=== PATIENT | female | born 1960 | race African-American/Black ===

== ENCOUNTER 2016-12-25 12:22 | Emergency (ER) | payer OTHER ==
[2016-12-25] MEDS ORDERED: ASPIRIN 81 MG TABLET, CHEWABLE PO ONE (13:49)
[2016-12-25 14:25] LABS: ABSOLUTE BASOPHILS # (AUTO) 0.1 10^3/uL (0.0-0.2); ABSOLUTE EOSINOPHILS # (AUTO) 0.2 10^3/uL (0.0-0.6); ABSOLUTE LYMPHOCYTES (AUTO) 2.6 10^3/uL (0.5-4.7); ABSOLUTE MONOCYTES (AUTO) 0.4 10^3/uL (0.1-1.4); ABSOLUTE NEUT (AUTO) 1.7 10^3/uL (1.7-8.2); BASOPHILS % (AUTO) 2.1 % (0-2); EOSINOPHILS % (AUTO) 3.5 % (0-6); HEMATOCRIT 40.3 % (36.0-47.0); HEMOGLOBIN 14.2 g/dL (12.0-15.5); HGB HCT DIFFERENCE 2.3; LYMPHOCYTES % (AUTO) 51.6 % (13-45); MEAN CORPUSCULAR HEMOGLOBIN 31.1 pg (27.0-33.4); MEAN CORPUSCULAR HGB CONC 35.1 g/dL (32.0-36.0); MEAN CORPUSCULAR VOLUME 89 fl (80-97); MONOCYTES % (AUTO) 8.7 % (3-13); RED BLOOD COUNT 4.55 10^6/uL (3.72-5.28); RED CELL DISTRIBUTION WIDTH 13.9 % (11.5-14.0); SEGMENTED NEUTROPHILS % (AUTO) 34.1 % (42-78); WHITE BLOOD COUNT 5.1 10^3/uL (4.0-10.5)
--- NOTE | 2016-12-25 14:37 | RADIOLOGY REPORT (SQ) ---
EXAM DESCRIPTION: CHEST SINGLE VIEW COMPLETED DATE/TIME: 12/25/2016 2:18 pm REASON FOR STUDY: chest pain, shoulder/neck pain COMPARISON: 09/04/2013 EXAM PARAMETERS: NUMBER OF VIEWS: One view. TECHNIQUE: Single frontal radiographic view of the chest acquired. RADIATION DOSE: NA LIMITATIONS: None. FINDINGS: LUNGS AND PLEURA: No opacities, masses or pneumothorax. No pleural effusion. MEDIASTINUM AND HILAR STRUCTURES: No masses. Contour normal. HEART AND VASCULAR STRUCTURES: Heart normal in size. Normal vasculature. BONES: No acute findings. HARDWARE: None in the chest. OTHER: No other significant finding. IMPRESSION: NO ACUTE RADIOGRAPHIC FINDING IN THE CHEST. TECHNICAL DOCUMENTATION: JOB ID: [id number]
[2016-12-25 15:00] LABS: CREATINE KINASE MB 4.09 ng/mL (<4.55)
[2016-12-25 15:02] LABS: TROPONIN I < 0.012 ng/mL
[2016-12-25 15:12] LABS: BLOOD UREA NITROGEN 17 mg/dL (7-20); CALCIUM 9.9 mg/dL (8.4-10.2); GLUCOSE 83 mg/dL (75-110)
[2016-12-25 15:13] LABS: ALANINE AMINOTRANSFERASE 55 U/L (9-52); ALBUMIN 4.5 g/dL (3.5-5.0); ALKALINE PHOSPHATASE 76 U/L (38-126); ANION GAP 11 (5-19); ASPARTATE AMINO TRANSFERASE 60 U/L (14-36); BILIRUBIN,TOTAL 0.5 mg/dL (0.2-1.3); CARBON DIOXIDE 29 mmol/L (22-30); CHLORIDE 100 mmol/L (98-107); CREATININE RESULT 0.84 mg/dL (0.52-1.25); POTASSIUM 3.4 mmol/L (3.6-5.0); SODIUM 139.6 mmol/L (137-145)
[2016-12-25 15:14] LABS: BILIRUBIN,DIRECT 0.4 mg/dL (0.0-0.4); CREATINE KINASE 436 U/L (30-135); LIPASE 105.8 U/L (23-300); TOTAL PROTEIN 8.4 g/dL (6.3-8.2)
--- NOTE | 2016-12-25 15:15 | EKG REPORT ---
SEVERITY:- BORDERLINE ECG - SINUS RHYTHM PROBABLE LEFT ATRIAL ABNORMALITY BORDERLINE R WAVE PROGRESSION, ANTERIOR LEADS : Confirmed by: Lexie Rubio 25-Dec-2016 15:15:14
--- NOTE | 2016-12-25 16:38 | ER Document Report ---
ED General - General Chief Complaint: Chest Pain Stated Complaint: CHEST PAIN Time Seen by Provider: 12/25/16 13:38 Notes: 56-year-old female presents emergency department complaining of 2 weeks of constant right ear, neck and shoulder pain as well as one half weeks of constant chest pain that she describes as a cramping pressure that has slowly been improving over the past week and a half. It does not change with exertion and it does not change with breathing. Patient notes that she had one episode of diarrhea yesterday but improved today. No nausea and no shortness of breath. Patient went to urgent care for the neck pain and was told to come to the emergency department because she had chest pain. TRAVEL OUTSIDE OF THE [place] IN LAST 30 DAYS: No - Related Data Allergies/Adverse Reactions: No Known Allergies Allergy (Verified 12/25/16 12:35) Past Medical History - General Information source: Patient - Social History Smoking Status: Never Smoker Chew tobacco use (# tins/day): No Frequency of alcohol use: Occasional Drug Abuse: None Family History: CAD, CVA, Malignancy - dad with colon cancer Patient has suicidal ideation: No Patient has homicidal ideation: No - Past Medical History Cardiac Medical History: Reports: Hx Hypercholesterolemia - No medications., Hx Hypertension Endocrine Medical History: Reports: Hx Diabetes Mellitus Type 2 - No medications , Hx Hypothyroidism - No medications Renal/ Medical History: Denies: Hx Peritoneal Dialysis Past Surgical History: Reports: Hx Breast Surgery - Right lumpectomy, Hx Section, Hx Hysterectomy - Immunizations Hx Diphtheria, Pertussis, Tetanus Vaccination: Yes Review of Systems - Review of Systems Constitutional: No symptoms reported EENT: See HPI Cardiovascular: See HPI Respiratory: No symptoms reported Gastrointestinal: See HPI, Diarrhea Musculoskeletal: See HPI -: Yes All other systems reviewed and negative Physical Exam - Vital signs Vitals: Temp Pulse Resp BP Pulse Ox 97.5 F 63 18 124/79 97 12/25/16 12:35 12/25/16 12:35 12/25/16 12:35 12/25/16 12:35 12/25/16 12:35 Interpretation: Normal - Notes Notes: GENERAL: Alert, interacts well. No acute distress. HEAD: Normocephalic, atraumatic EYES: Pupils equal, round and reactive to light, extraocular movements intact. ENT: Oral mucosa moist, tongue midline. NECK: Full range of motion, supple, trachea midline. LUNGS: Clear to auscultation bilaterally, no wheezes, rales or rhonchi, no respiratory distress. HEART: Regular rate and rhythm, no murmurs, gallops, rubs. ABDOMEN: Soft, nontender, nondistended, bowel sounds present in all 4 quadrants. EXTREMITIES: Moves all 4 extremities spontaneously, no edema, radial and dorsalis pedis pulses 2/4 bilaterally. No cyanosis. NEUROLOGICAL: Alert and oriented x3, normal speech, biceps and patellar DTRs 2+ bilaterally. PSYCH: Normal mood, normal affect. SKIN: Warm, Dry, normal turgor, no rashes or lesions noted. Course - Re-evaluation Re-evalutation: 12/25/16 16:36 CBC unremarkable, coags normal, CMP grossly unremarkable, there is slightly elevated AST and ALT but no evidence of acute obstruction or biliary pathology, lipase is normal, cardiac enzymes negative after 1-1/2 weeks of constant pain. This is very unlikely to be ischemic cardiac in nature. EKG is also nonischemic. Patient will be discharged to home, asked to follow-up as an outpatient. Offered muscle relaxer for the neck and shoulder pain. - Vital Signs Vital signs: Temp Pulse Resp BP Pulse Ox 97.5 F 63 18 124/79 97 12/25/16 12:35 12/25/16 12:35 12/25/16 12:35 12/25/16 12:35 12/25/16 12:35 - Laboratory Result Diagrams: 12/25/16 14:00 12/25/16 14:00 Laboratory results interpreted by me: 12/25/16 12/25/16 14:00 14:00 Seg Neutrophils % 34.1 L Lymphocytes % 51.6 H Basophils % 2.1 H Potassium 3.4 L AST 60 H ALT 55 H Creatine Kinase 436 H Total Protein 8.4 H - EKG Interpretation by Me Additional EKG results interpreted by me: 12/25/16 16:37 EKG shows sinus bradycardia at a rate of 57, first-degree AV block, borderline normal wave progression, no ST segment elevations or depressions, no T-wave inversions per my interpretation. Discharge - Discharge Clinical Impression: Chest pain with low risk for cardiac etiology Shoulder pain, bilateral Qualifiers: Chronicity: acute Qualified Code(s): M25.511 - Pain in right shoulder; M25.512 - Pain in left shoulder Condition: Stable Disposition: HOME, SELF-CARE Additional Instructions: Today we did not find any signs of a heart attack, pneumonia, or problem with your pancreas. You should follow-up with your primary care physician as an outpatient. For your pain you may try ibuprofen and acetaminophen. I have also prescribed a muscle relaxer to help with some of your pain. Please return to the emergency department for any new or concerning symptoms. Prescriptions: Methocarbamol [Robaxin 750 mg Tablet] 750 mg PO ASDIR PRN #40 tablet PRN Reason:
[2016-12-25 16:45] VITALS: BP 121/86
== END 2016-12-25 16:59 | disposition home or self-care (01) ==
LOC: ER 12:22
DX: R07.89 Other chest pain (principal); M25.511 Pain in right shoulder; M25.512 Pain in left shoulder; H92.01 Otalgia, right ear; M54.2 Cervicalgia; R00.1 Bradycardia, unspecified; I10 Essential (primary) hypertension; E11.9 Type 2 diabetes mellitus without complications; R19.7 Diarrhea, unspecified; Z82.49 Family history of ischemic heart disease and other diseases of the circulatory system; R74.0 Nonspecific elevation of levels of transaminase and lactic acid dehydrogenase [LDH]
CPT/HCPCS: 36415; 71010; 80053; 82550; 82553; 83690; 84484; 85025; 85610; 93005; 93010; 99285

== ENCOUNTER 2017-10-13 06:56 | Emergency (ER) | payer OTHER ==
[2017-10-13 07:03] VITALS: BP 120/74
[2017-10-13] MEDS ORDERED: LIDOCAINE 5% (700 MG) TRANSDERMAL ADH..PATCH TP ONE (07:53)
--- NOTE | 2017-10-13 07:55 | ER Document Report ---
HPI - HPI Patient complains to provider of: Low back pain Onset: Other - 2 months Onset/Duration: Waxing and waning Quality of pain: Achy Pain Level: 4 Context: Patient presents complaining of low back pain off and on for the past 2 months. Patient denies any fever or urinary retention or incontinence. Patient states that she has an appointment with physical therapy on October 19. Patient states that she has a prescription for gabapentin but does not take it as it does not help her pain symptoms. Associated Symptoms: Other - Low back pain. denies: Fever Exacerbated by: Movement Relieved by: Denies Similar symptoms previously: Yes Recently seen / treated by doctor: No - ROS ROS below otherwise negative: Yes Systems Reviewed and Negative: Yes All other systems reviewed and negative - CONSTITUTIONAL Constitutional: DENIES: Fever, Chills - NEURO Neurology: DENIES: Weakness - RESPIRATORY Respiratory: DENIES: Coughing - GASTROINTESTINAL Gastrointestinal: DENIES: Nausea - URINARY Urinary: DENIES: Dysuria, Urgency, Frequency - REPRODUCTIVE Reproductive: DENIES: : - MUSCULOSKELETAL Musculoskeletal: REPORTS: Extremity pain, Back Pain - DERM Skin Color: Normal Skin Problems: None Past Medical History - General Information source: Patient - Social History Smoking Status: Never Smoker Frequency of alcohol use: None Drug Abuse: None Occupation: Daycare provider Family History: CAD, CVA, Malignancy - dad with colon cancer Patient has suicidal ideation: No Patient has homicidal ideation: No - Past Medical History Cardiac Medical History: Reports: Hx Hypercholesterolemia - No medications., Hx Hypertension Endocrine Medical History: Reports: Hx Diabetes Mellitus Type 2 - No medications , Hx Hypothyroidism - No medications Renal/ Medical History: Denies: Hx Peritoneal Dialysis Musculoskeletal Medical History: Reports Other - Sciatica Past Surgical History: Reports: Hx Breast Surgery - Right lumpectomy, Hx Section, Hx Hysterectomy - Immunizations Hx Diphtheria, Pertussis, Tetanus Vaccination: Yes Vertical Provider Document - CONSTITUTIONAL Agree With Documented VS: Yes Exam Limitations: No Limitations General Appearance: WD/WN, No Apparent Distress Notes: PHYSICAL EXAMINATION: GENERAL: Well-appearing, well-nourished and in no acute distress. HEAD: Atraumatic, normocephalic. EYES: sclera clear, anicteric, conjunctiva are normal. ENT: nares patent, Moist mucous membranes. NECK: Normal range of motion, supple no lymphadenopathy LUNGS: respirations unlabored HEART: Regular rate and rhythm without murmurs EXTREMITIES: Normal range of motion, no pitting or edema. No cyanosis. Gait normal, pt ambulates without difficulty BACK: Left SI joint tenderness, left lumbar paraspinal tenderness, no midline tenderness, no deformities or step-offs. No CVA tenderness. NEUROLOGICAL: Cranial nerves grossly intact. Normal speech, normal gait. No saddle anesthesia. No footdrop PSYCH: Normal mood, normal affect. SKIN: Warm, Dry, normal turgor, no rashes or lesions noted. - INFECTION CONTROL TRAVEL OUTSIDE OF THE [place] IN LAST 30 DAYS: No Course - Re-evaluation Re-evalutation: 10/13/17 07:53 The patient presents with low back pain without signs of spinal cord compression , cauda equina syndrome, infection, aneurysm, or other serious etiology. The patient is neurologically intact. Given the extremely risk of these diagnoses further testing and evaluation for these possibilities does not appear to be indicated at this time. Patient has been instructed to return if the symptoms worsen or change in any way. Controlled substance database reviewed - Vital Signs Vital signs: Temp Pulse Resp BP Pulse Ox 98 F 79 18 120/74 96 10/13/17 06:59 10/13/17 06:59 10/13/17 06:59 10/13/17 06:59 10/13/17 06:59 Discharge - Discharge Clinical Impression: Sciatica Qualifiers: Laterality: left Qualified Code(s): M54.32 - Sciatica, left side Condition: Stable Disposition: HOME, SELF-CARE Instructions: Ice Packs ([facility]), Low Back Pain ([facility]), Oral Narcotic Medication ( [facility]), Sciatica ([facility]) Additional Instructions: Return immediately for any new or worsening symptoms Followup with your primary care provider, call tomorrow to make a followup appointment No heavy lifting Prescriptions: Cyclobenzaprine HCl [Flexeril 10 Mg Tablet] 10 mg PO TID #15 tablet Oxycodone HCl/Acetaminophen [Percocet 5-325 mg Tablet] 1 tab PO ASDIR PRN #15 tablet PRN Reason: Forms: Return to Work Referrals: RAJWINDER FRIEND MD [Primary Care Provider] - Follow up tomorrow
== END 2017-10-13 08:17 | disposition home or self-care (01) ==
LOC: ER 06:56
DX: M54.32 Sciatica, left side (principal); E78.00 Pure hypercholesterolemia, unspecified; I10 Essential (primary) hypertension; E11.9 Type 2 diabetes mellitus without complications; Z90.710 Acquired absence of both cervix and uterus
CPT/HCPCS: 99283

== ENCOUNTER → 2018-01-11 | Outpatient (CLI) | payer OTHER ==
--- NOTE | 2018-01-11 14:36 | WOMENS IMAGING REPORT ---
EXAM DESCRIPTION: BILAT SCREENING MAMMO W/CAD COMPLETED DATE/TIME: 01/11/2018 1:17 pm REASON FOR STUDY: BILATERAL SCREENING MAMMO/Z12.31 Z12.31 ENCNTR SCREEN MAMMOGRAM FOR MALIGNANT JEREMÍAS PLASM OF YAIR COMPARISON: Multiple since 2009 TECHNIQUE: Standard craniocaudal and mediolateral oblique views of each breast recorded using [employer] acquisition. LIMITATIONS: None. FINDINGS: No masses, calcifications or architectural distortion. No areas of suspicion. Read with the assistance of CAD. [facility] - R2 Cenova Version 1.3 .[facility] - R2 Cenova Version 1.3 .[facility] - R2 Cenova Version 2.4 .[facility] [place] Cenova Version 2.4 .[facility] - R2 [employer] Version 9.2 IMPRESSION: NORMAL MAMMOGRAM. BIRADS 1. BREAST DENSITY: b. There are scattered areas of fibroglandular density. BIRAD: 1 NEGATIVE RECOMMENDATION: ROUTINE SCREENING Please continue yearly bilateral screening mammography/tomosynthesis in December 2018 COMMENT: The patient has been notified of the results by letter per [place] requirements. Additional no tification policies are in place for contacting patient with suspicious or incomplete findings. Quality ID #[id number]: The [employer] recommends an annual screening mammogram for women aged 40 years or over. This facility utilizes a reminder system to ensure that all patients receive reminder letters, and/or direct phone calls for appointments. This includes reminders for routine scr eening mammograms, diagnostic mammograms, or other Breast Imaging Interventions when appropriate. Th is patient will be placed in the appropriate reminder system. The [employer] (ACR) has developed recommendations for screening MRI of the breast s in certain patient populations, to be used in conjunction with mammography. Breast MRI surveillanc e may be appropriate for women with more than 20% lifetime risk of developing breast cancer as deter mined by genetic testing, significant family history of the disease, or history of mantle radiation f or Hodgkins Disease. ACR Practice Guidelines 2008. TECHNICAL DOCUMENTATION: FINDING NUMBER: (1) ASSESSMENT: (1) JOB ID: [id number] [employer]- All Rights Reserved Reading location - IP/workstation name: [email or web address]
== END ==
LOC: WI 12:45
PROVIDERS: ATTEND Physician Assistant Medical
DX: Z12.31 Encounter for screening mammogram for malignant neoplasm of breast (principal)
CPT/HCPCS: 77067

== ENCOUNTER → 2018-07-27 | Outpatient (CLI) | payer OTHER | LOC: OD 07:38 | PROVIDERS: ATTEND Otolaryngology | DX: J30.9 Allergic rhinitis, unspecified (principal) | CPT/HCPCS: 36415; 82785; 86003 ==

== ENCOUNTER 2018-08-12 08:35 | Emergency (ER) | payer OTHER ==
[2018-08-12] MEDS ORDERED: ASPIRIN 81 MG TABLET, CHEWABLE PO ONE (09:13)
--- NOTE | 2018-08-12 09:15 | ER Document Report ---
ED Medical Screen (RME) - General Chief Complaint: Chest Pain Stated Complaint: LEFT LEG PAIN Time Seen by Provider: 08/12/18 09:12 Primary Care Provider: RIZWAN MADSEN MD [Primary Care Provider] - Follow up as needed Mode of Arrival: Ambulatory Information source: Patient Notes: 58-year-old female presented to ED for complaint of left chest pain that goes across both shoulders and down the left arm. She states it makes her left arm numb at times. She also has low back pain that radiates to both legs but worse on the left side. She denies any signs or symptoms of cauda equina, saddle anesthesia, loss of control of bowel bladder, loss of sensation or control of lower extremities. Patient is able to walk with a even steady gait. She states she does have a history of sciatica and high blood pressure. Patient is alert oriented respirations regular and unlabored speaking in full sentences. I have greeted and performed a rapid initial assessment of this patient. A comprehensive ED assessment and evaluation of the patient, analysis of test results and completion of medical decision making process will be conducted by an additional ED providers. Dictation of this chart was performed using voice recognition software; therefore, there may be some unintended grammatical errors. TRAVEL OUTSIDE OF THE [place] IN LAST 30 DAYS: No - Related Data Allergies/Adverse Reactions: No Known Allergies Allergy (Verified 08/12/18 08:36) Past Medical History - Past Medical History Cardiac Medical History: Reports: Hx Hypercholesterolemia - No medications., Hx Hypertension Endocrine Medical History: Reports: Hx Diabetes Mellitus Type 2 - No medications, Hx Hypothyroidism - No medications Renal/ Medical History: Denies: Hx Peritoneal Dialysis Past Surgical History: Reports: Hx Breast Surgery - Right lumpectomy, Hx Section, Hx Hysterectomy - Immunizations Hx Diphtheria, Pertussis, Tetanus Vaccination: Yes Physical Exam - Vital signs Vitals: Temp Pulse Resp BP Pulse Ox 98.1 F 71 16 144/78 H 96 08/12/18 08:48 08/12/18 08:48 08/12/18 08:48 08/12/18 08:48 08/12/18 08:48 Course - Vital Signs Vital signs: Temp Pulse Resp BP Pulse Ox 98.1 F 71 16 144/78 H 96 08/12/18 08:48 08/12/18 08:48 08/12/18 08:48 08/12/18 08:48 08/12/18 08:48 Doctor's Discharge - Discharge Referrals: RIZWAN MADSEN MD [Primary Care Provider] - Follow up as needed
--- NOTE | 2018-08-12 09:56 | RADIOLOGY REPORT (SQ) ---
EXAM DESCRIPTION: CHEST 2 VIEWS COMPLETED DATE/TIME: 08/12/2018 9:42 am REASON FOR STUDY: chest and upper back pain COMPARISON: AP chest 12/25/2016 EXAM PARAMETERS: NUMBER OF VIEWS: two views TECHNIQUE: Digital Frontal and Lateral radiographic views of the chest acquired. RADIATION DOSE: NA LIMITATIONS: none FINDINGS: LUNGS AND PLEURA: No opacities, masses or pneumothorax. No pleural effusion. MEDIASTINUM AND HILAR STRUCTURES: No masses or contour abnormalities. HEART AND VASCULAR STRUCTURES: Heart normal size. No evidence for failure. BONES: No acute findings. HARDWARE: None in the chest. OTHER: No other significant finding. IMPRESSION: NO ACUTE RADIOGRAPHIC FINDING IN THE CHEST. TECHNICAL DOCUMENTATION: JOB ID: [id number] [employer]- All Rights Reserved Reading location - IP/workstation name: [email or web address]
[2018-08-12 10:00] LABS: ABSOLUTE EOSINOPHILS # (AUTO) 0.2 10^3/uL (0.0-0.6); ABSOLUTE LYMPHOCYTES (AUTO) 2.5 10^3/uL (0.5-4.7); ABSOLUTE MONOCYTES (AUTO) 0.5 10^3/uL (0.1-1.4); ABSOLUTE NEUT (AUTO) 1.8 10^3/uL (1.7-8.2); BASOPHILS % (AUTO) 0.9 % (0-2); EOSINOPHILS % (AUTO) 3.5 % (0-6); HEMATOCRIT 39.7 % (36.0-47.0); HEMOGLOBIN 13.4 g/dL (12.0-15.5); LYMPHOCYTES % (AUTO) 50.3 % (13-45); MEAN CORPUSCULAR HEMOGLOBIN 30.1 pg (27.0-33.4); MEAN CORPUSCULAR HGB CONC 33.7 g/dL (32.0-36.0); MEAN CORPUSCULAR VOLUME 89 fl (80-97); PLATELET COUNT 268 10^3/uL (150-450); RED BLOOD COUNT 4.45 10^6/uL (3.72-5.28); RED CELL DISTRIBUTION WIDTH 13.8 % (11.5-14.0); SEGMENTED NEUTROPHILS % (AUTO) 36.3 % (42-78); TOTAL CELLS COUNTED % (AUTO) 100 %
[2018-08-12 10:11] LABS: APPEARANCE,URINE CLOUDY; BILIRUBIN,URINE NEGATIVE (NEGATIVE); COLOR,URINE YELLOW; GLUCOSE, URINE NEGATIVE (NEGATIVE); KETONES,URINE NEGATIVE (NEGATIVE); LEUKOCYTE ESTERASE,URINE MODERATE (NEGATIVE); NITRITE,URINE NEGATIVE (NEGATIVE); PROTEIN,URINE NEGATIVE (NEGATIVE); URINE SPECIFIC GRAVITY 1.015; UROBILINOGEN,URINE NEGATIVE mg/dL (<2.0)
[2018-08-12 10:19] LABS: ALANINE AMINOTRANSFERASE 50 U/L (9-52); ALKALINE PHOSPHATASE 76 U/L (38-126); ANION GAP 9 (5-19); ASPARTATE AMINO TRANSFERASE 51 U/L (14-36); BILIRUBIN,DIRECT 0.2 mg/dL (0.0-0.4); BILIRUBIN,TOTAL 0.4 mg/dL (0.2-1.3); BLOOD UREA NITROGEN 14 mg/dL (7-20); CALCIUM 9.5 mg/dL (8.4-10.2); CARBON DIOXIDE 29 mmol/L (22-30); CHLORIDE 103 mmol/L (98-107); GLUCOSE 91 mg/dL (75-110); POTASSIUM 4.2 mmol/L (3.6-5.0); SODIUM 141.2 mmol/L (137-145); TOTAL PROTEIN 7.7 g/dL (6.3-8.2)
[2018-08-12 10:37] LABS: CREATINE KINASE MB 2.01 ng/mL (<4.55)
[2018-08-12 10:40] LABS: TROPONIN I < 0.012 ng/mL
--- NOTE | 2018-08-12 10:45 | RADIOLOGY REPORT (SQ) ---
EXAM DESCRIPTION: L SPINE WHOLE COMPLETED DATE/TIME: 08/12/2018 9:42 am REASON FOR STUDY: low back pain radiates to left leg COMPARISON: None. NUMBER OF VIEWS: Five views including obliques. TECHNIQUE: AP, lateral, oblique, and sacral radiographic images acquired of the lumbar spine. LIMITATIONS: None. FINDINGS: MINERALIZATION: Normal. SEGMENTATION: Normal. No transitional anatomy. ALIGNMENT: Minimal grade 1 anterolisthesis of L4 on L5. VERTEBRAE: Maintained height. No fracture or worrisome bone lesion. DISCS: Mild disc narrowing at L4-5 and L5-S1. POSTERIOR ELEMENTS: Hypertrophic facet changes from L4-S1. HARDWARE: None in the spine. PARASPINAL SOFT TISSUES: Normal. PELVIS: Intact as visualized. No fractures or worrisome bone lesions. SI joints intact. OTHER: No other significant finding. IMPRESSION: Minimal anterolisthesis. Mild degenerative disc changes. Facet arthropathy. TECHNICAL DOCUMENTATION: JOB ID: [id number] [employer]- All Rights Reserved Reading location - IP/workstation name: [email or web address]
[2018-08-12 12:02] VITALS: BP 123/75
--- NOTE | 2018-08-12 14:19 | ER Document Report ---
Entered by EFRA OSLANO SCRIBE 08/12/18 1007 Acting as scribe for:ANTWON BARRAGAN MD ED General - General Chief Complaint: Chest Pain Stated Complaint: LEFT LEG PAIN Time Seen by Provider: 08/12/18 09:12 Primary Care Provider: RIZWAN MADSEN MD [ACTIVE STAFF] - Follow up as needed Mode of Arrival: Ambulatory Information source: Patient Notes: Patient is a 58 year old female presenting to the emergency department complaining of left leg pain with associated chest and lower back pain. Patient states that the pain she is experiencing is "burning down the front of my leg" and she also describes the quality of her chest pain as a pressure. Patient states the pain travels straight down her leg, not in a radicular pattern. Patient states that she has had this pain in the past and it is usually intermittent but is currently constant. Patient states that the onset of this pain was last night. Patient is currently taking medication for her blood pressure, but denies taking any medication for her thyroid, cholesterol, or diabetes. TRAVEL OUTSIDE OF THE [place] IN LAST 30 DAYS: No - Related Data Allergies/Adverse Reactions: No Known Allergies Allergy (Verified 08/12/18 08:36) Past Medical History - General Information source: Patient - Social History Smoking Status: Never Smoker Cigarette use (# per day): No Frequency of alcohol use: Occasional Drug Abuse: None Lives with: Family Family History: CAD, CVA, Malignancy Patient has suicidal ideation: No Patient has homicidal ideation: No - Past Medical History Cardiac Medical History: Reports: Hx Hypercholesterolemia - No medications., Hx Hypertension Endocrine Medical History: Reports: Hx Diabetes Mellitus Type 2 - No medications, Hx Hypothyroidism - No medications Past Surgical History: Reports: Hx Breast Surgery - Right lumpectomy, Hx Section, Hx Hysterectomy - Immunizations Hx Diphtheria, Pertussis, Tetanus Vaccination: Yes Review of Systems - Review of Systems Constitutional: No symptoms reported EENT: No symptoms reported Cardiovascular: See HPI, Chest pain Respiratory: No symptoms reported Gastrointestinal: No symptoms reported Genitourinary: No symptoms reported Female Genitourinary: No symptoms reported Musculoskeletal: Back pain, Other - left leg pain Skin: No symptoms reported Hematologic/Lymphatic: No symptoms reported Neurological/Psychological: No symptoms reported -: Yes All other systems reviewed and negative Physical Exam - Vital signs Vitals: Temp Pulse Resp BP Pulse Ox 98.1 F 71 16 144/78 H 96 08/12/18 08:48 08/12/18 08:48 08/12/18 08:48 08/12/18 08:48 08/12/18 08:48 - Notes Notes: Physical Exam: General: Alert, morbidly obese. HEENT: Normocephalic. Atraumatic. PERRL. Extraocular movements intact. Oropharynx clear. Neck: Supple. Non-tender. Respiratory: No respiratory distress, no anterior chest wall tenderness palpation. Clear and equal breath sounds bilaterally. Cardiovascular: Regular rate and rhythm. Abdominal: Normal Inspection. Non-tender. No distension. Normal Bowel Sounds. Back: Lower lumbar tenderness to palpation. No deformity or step off. Extremities: Moves all four extremities. Upper extremities: Normal inspection. Normal ROM. Lower extremities: Normal inspection. No edema. Normal ROM. Neurological: Normal cognition. AAOx4. Normal speech. Psychological: Normal affect. Normal Mood. Skin: Warm. Dry. Normal color. Course - Re-evaluation Re-evalutation: 08/12/18 11:14 Patient's hemoglobin A1c is 5.5, and the TSH is 1.40 She did receive a prescription for 90 Roberts tablets from her new primary care provider 6 days ago. - Vital Signs Vital signs: Temp Pulse Resp BP Pulse Ox 98.0 F 71 15 123/75 99 08/12/18 12:00 08/12/18 08:48 08/12/18 12:00 08/12/18 12:00 08/12/18 12:00 - Laboratory Result Diagrams: 08/12/18 09:40 08/12/18 09:40 Laboratory results interpreted by me: 08/12/18 08/12/18 08/12/18 09:40 09:40 09:42 Seg Neutrophils % 36.3 L Lymphocytes % 50.3 H AST 51 H Ur Leukocyte Esterase MODERATE H - Diagnostic Test Radiology reviewed: Image reviewed, Reports reviewed - Lumbar spine films show facet arthropathy and some other degenerative changes with nothing acute. Chest x-ray is unremarkable. Discharge - Discharge Clinical Impression: Chest wall pain, Numbness of left anterior thigh Chronic low back pain Qualifiers: Back pain laterality: unspecified Sciatica presence: unspecified whether sciatica present Qualified Code(s): M54.5 - Low back pain; G89.29 - Other chronic pain Condition: Stable Disposition: HOME, SELF-CARE Additional Instructions: Chest Wall Pain: Your chest pain has been diagnosed as coming from the chest wall. This is often caused by straining the muscles or joints in the chest during physical activity, direct trauma, coughing, or vigorous vomiting. Persons with arthritis are especially prone to this type of pain, due to inflammation of the cartilage joints near the breast bone. Occasionally, no cause can be found. Rest from strenuous physical activity. This kind of chest pain is usually made worse by movement of the chest. Depending on the symptoms, we may prescribe medicine for pain, muscle relaxation, and antiinflammatory effects. If the pain is new, and seems to be due to muscle strain, cold packs can help. Otherwise, apply gentle warmth to the painful area for 15 minutes every hour or two. You should contact the doctor immediately if things change. Further evaluation is needed if you develop a fever or cough, if the nature of the pain changes, or if you become short of breath. Chronic Back Pain: Chronic back pain (pain persisting longer than three months) is a common problem. A medical evaluation can look for herniated disc, arthritis, osteoporosis, tumors, and infections. But at least half the time, there's no obvious treatable cause. Anxiety and depression tend to worsen back pain. Ibuprofen or other anti-inflammatory medicine can help. A heating pad, used for 15-20 minutes at a time, can ease pain. For this type of back pain, narcotic medicines should be avoided. Muscle relaxers are rarely helpful unless you're having spasms. Activity is important. Find an aerobic exercise program that your back can tolerate. Too much rest makes back pain worse. Specific back exercises are usually prescribed to strengthen the back and abdominal muscles. Often, a physical therapist can help. Avoid heavy lifting, working while bent over, or standing with both knees straight. Most back pain patients do better with a firm mattress. If new symptoms of a "herniated disc" (radiation of pain, numbness, or tingling down the back of the leg or weakness in the leg) occur, you should be re-examined. Your x-rays did show some arthritic changes in your lumbar spine. Your hemoglobin A1c was normal, and your thyroid-stimulating hormone were normal, meaning you do not show evidence of diabetes or impaired glucose tolerance at this time, and you do not show evidence of hypothyroidism. The numbness and burning sensation in your left anterior thigh is not likely a pinched nerve problem, because it does not follow a lumbar nerve dermatome patterns. Continue your regular medications. Adding ibuprofen or Aleve may help the chest wall discomfort. Follow-up with your primary care provider if not improving. RETURN TO THE EMERGENCY ROOM IF ANY NEW OR WORSENING SYMPTOMS. Referrals: RIZWAN MADSEN MD [ACTIVE STAFF] - Follow up as needed Scribe Attestation: 08/12/18 10:31 I personally performed the services described in the documentation, reviewed and edited the documentation which was dictated to the scribe in my presence, and it accurately records my words and actions. I personally performed the services described in the documentation, reviewed and edited the documentation which was dictated to the scribe in my presence, and it accurately records my words and actions.
--- NOTE | 2018-08-12 16:19 | EKG REPORT ---
SEVERITY:- ABNORMAL ECG - SINUS RHYTHM PROBABLE LEFT ATRIAL ABNORMALITY ABNRM R PROG, CONSIDER ASMI OR LEAD PLACEMENT : Confirmed by: Joel Jimenez MD 12-Aug-2018 16:18:57
== END 2018-08-12 12:08 | disposition home or self-care (01) ==
LOC: ER 08:35
DX: R07.89 Other chest pain (principal); R20.0 Anesthesia of skin; M79.605 Pain in left leg; G89.29 Other chronic pain; M54.5 Low back pain; E78.00 Pure hypercholesterolemia, unspecified; I10 Essential (primary) hypertension; E11.9 Type 2 diabetes mellitus without complications; Z90.710 Acquired absence of both cervix and uterus
CPT/HCPCS: 36415; 71046; 72110; 80053; 81001; 82553; 83036; 84443; 84484; 85025; 93005; 93010; 99284

== ENCOUNTER 2020-03-19 18:03 | Observation (INO) | payer OTHER ==
--- NOTE | 2020-03-19 18:50 | ER Document Report ---
ED Medical Screen (RME) - General Chief Complaint: Blood Pressure Problem Stated Complaint: BLOOD PRESUURE PROBLEM Time Seen by Provider: 03/19/20 18:40 Primary Care Provider: JUNITO WATSON PA-C [Primary Care Provider] - Follow up as needed Mode of Arrival: Wheelchair Information source: Patient Notes: 60-year-old female presented to ED for complaint of severe headache blurred vision chest pain radiating down her right arm. She states she is also having tingling in her left arm and hand. She states she has had high blood pressure since about 1989. Her blood pressure in triage was 244/115. She is already on clonidine patch which she put on Wednesday lisinopril verapamil and hydrochlorothiazide. She is on Metformin for her diabetes type 2 and hydrocodone for her chronic pain. She came in because the increase in headache and blurred vision and pain radiating from the chest down the left arm. I have greeted and performed a rapid initial assessment of this patient. A comprehensive ED assessment and evaluation of the patient, analysis of test results and completion of medical decision making process will be conducted by an additional ED providers. TRAVEL OUTSIDE OF THE [place] IN LAST 30 DAYS: No - Related Data Allergies/Adverse Reactions: No Known Allergies Allergy (Verified 08/12/18 08:36) Past Medical History - Past Medical History Cardiac Medical History: Reports: Hx Hypercholesterolemia - No medications., Hx Hypertension Endocrine Medical History: Reports: Hx Diabetes Mellitus Type 2 - No medications, Hx Hypothyroidism - No medications Renal/ Medical History: Denies: Hx Peritoneal Dialysis Past Surgical History: Reports: Hx Breast Surgery - Right lumpectomy, Hx Section, Hx Hysterectomy - Immunizations Hx Diphtheria, Pertussis, Tetanus Vaccination: Yes Physical Exam - Vital signs Vitals: Temp Pulse Resp BP Pulse Ox 98.1 F 75 20 224/115 H 99 03/18/20 18:10 03/18/20 18:10 03/18/20 18:10 03/18/20 18:10 03/18/20 18:10 Course - Vital Signs Vital signs: Temp Pulse Resp BP Pulse Ox 98.1 F 75 20 224/115 H 99 03/18/20 18:10 03/18/20 18:10 03/18/20 18:10 03/18/20 18:10 03/18/20 18:10 Doctor's Discharge - Discharge Referrals: JUNITO WATSON PAChaddC [Primary Care Provider] - Follow up as needed
[2020-03-19 19:25] LABS: ABSOLUTE EOSINOPHILS # (AUTO) 0.2 10^3/uL (0.0-0.6); ABSOLUTE MONOCYTES (AUTO) 0.4 10^3/uL (0.1-1.4); ABSOLUTE NEUT (AUTO) 2.5 10^3/uL (1.7-8.2); TOTAL CELLS COUNTED % (AUTO) 100 %
[2020-03-19 19:28] LABS: ABSOLUTE BASOPHILS # (AUTO) 0.1 10^3/uL (0.0-0.2); ABSOLUTE LYMPHOCYTES (AUTO) 3.1 10^3/uL (0.5-4.7); BASOPHILS % (AUTO) 0.9 % (0-2); EOSINOPHILS % (AUTO) 2.8 % (0-6); HEMATOCRIT 41.5 % (36.0-47.0); HEMOGLOBIN 13.8 g/dL (12.0-15.5); LYMPHOCYTES % (AUTO) 49.3 % (13-45); MEAN CORPUSCULAR HGB CONC 33.3 g/dL (32.0-36.0); MEAN CORPUSCULAR VOLUME 90 fl (80-97); MONOCYTES % (AUTO) 7.2 % (3-13); PLATELET COUNT 256 10^3/uL (150-450); RED BLOOD COUNT 4.62 10^6/uL (3.72-5.28); RED CELL DISTRIBUTION WIDTH 14.1 % (11.5-14.0); SEGMENTED NEUTROPHILS % (AUTO) 39.8 % (42-78); WHITE BLOOD COUNT 6.2 10^3/uL (4.0-10.5)
[2020-03-19 19:29] LABS: INTERNATIONAL RATION (INR) 0.83; PROTHROMBIN TIME 11.6 SEC (11.4-15.4)
[2020-03-19 19:30] LABS: PARTIAL THROMBOPLASTIN TIME 27.8 SEC (23.5-35.8)
--- NOTE | 2020-03-19 19:37 | RADIOLOGY REPORT (SQ) ---
EXAM DESCRIPTION: CT HEAD WITHOUT IMAGES COMPLETED DATE/TIME: 03/19/2020 7:19 pm REASON FOR STUDY: Headache high blood pressure blurred vision COMPARISON: None. TECHNIQUE: Axial images acquired through the brain without intravenous contrast. Images reviewed wi th bone, brain and subdural windows. Additional sagittal and coronal reconstructions were generated. Images stored on PACS. All CT scanners at this facility use dose modulation, iterative reconstruction, and/or weight based d osing when appropriate to reduce radiation dose to as low as reasonably achievable (ALARA). [facility]: Dose Right [facility]: CareDose [facility]: Dose Right [facility]: Teradose 4D [facility]: Smart Yieldex RADIATION DOSE: CT Rad equipment meets quality standard of care and radiation dose reduction techniq ues were employed. CTDIvol: 53.2 mGy. DLP: 964 mGy-cm. mGy. LIMITATIONS: None. FINDINGS: VENTRICLES: Normal size and contour. CEREBRUM: No masses. No hemorrhage. No midline shift. No evidence for acute infarction. Normal gra y/white matter differentiation. No areas of low density in the white matter. CEREBELLUM: No masses. No hemorrhage. No alteration of density. No evidence for acute infarction. EXTRAAXIAL SPACES: No fluid collections. No masses. ORBITS AND GLOBE: No intra- or extraconal masses. Normal contour of globe without masses. CALVARIUM: No fracture. PARANASAL SINUSES: No fluid or mucosal thickening. SOFT TISSUES: No mass or hematoma. OTHER: No other significant finding. IMPRESSION: NORMAL BRAIN CT WITHOUT CONTRAST. EVIDENCE OF ACUTE STROKE: NO. COMMENT: Quality ID # [id number]: Final reports with documentation of one or more dose reduction techniques (e.g., Automated exposure control, adjustment of the mA and/or kV according to patient size, use of iterative reconstruction technique) TECHNICAL DOCUMENTATION: JOB ID: [id number] 2010 [facility]- All Rights Reserved Reading location - IP/workstation name: [email or web address]
--- NOTE | 2020-03-19 19:38 | RADIOLOGY REPORT (SQ) ---
EXAM DESCRIPTION: CHEST SINGLE VIEW IMAGES COMPLETED DATE/TIME: 03/19/2020 7:18 pm REASON FOR STUDY: Chest pain COMPARISON: 08/12/2018 EXAM PARAMETERS: NUMBER OF VIEWS: One view. TECHNIQUE: Single frontal radiographic view of the chest acquired. RADIATION DOSE: NA LIMITATIONS: None. FINDINGS: LUNGS AND PLEURA: No opacities, masses or pneumothorax. No pleural effusion. MEDIASTINUM AND HILAR STRUCTURES: No masses. Contour normal. HEART AND VASCULAR STRUCTURES: Heart normal in size. Normal vasculature. BONES: No acute findings. HARDWARE: None in the chest. OTHER: No other significant finding. IMPRESSION: NO ACUTE RADIOGRAPHIC FINDING IN THE CHEST. TECHNICAL DOCUMENTATION: JOB ID: [id number] 2010 [employer]- All Rights Reserved Reading location - IP/workstation name: [email or web address]
[2020-03-19 19:44] LABS: ALBUMIN 4.1 g/dL (3.5-5.0); ALKALINE PHOSPHATASE 73 U/L (38-126); ANION GAP 10 (5-19); ASPARTATE AMINO TRANSFERASE 42 U/L (14-36); BILIRUBIN,DIRECT 0.3 mg/dL (0.0-0.4); BILIRUBIN,TOTAL 0.6 mg/dL (0.2-1.3); BLOOD UREA NITROGEN 16 mg/dL (7-20); CALCIUM 9.5 mg/dL (8.4-10.2); CARBON DIOXIDE 31 mmol/L (22-30); CHLORIDE 99 mmol/L (98-107); GLUCOSE 92 mg/dL (75-110); POTASSIUM 4.2 mmol/L (3.6-5.0); TOTAL PROTEIN 7.8 g/dL (6.3-8.2)
[2020-03-19 19:55] LABS: APPEARANCE,URINE CLEAR; BILIRUBIN,URINE NEGATIVE (NEGATIVE); COLOR,URINE STRAW; GLUCOSE, URINE NEGATIVE (NEGATIVE); KETONES,URINE NEGATIVE (NEGATIVE); LEUKOCYTE ESTERASE,URINE NEGATIVE (NEGATIVE); NITRITE,URINE NEGATIVE (NEGATIVE); PROTEIN,URINE NEGATIVE (NEGATIVE); URINE SPECIFIC GRAVITY 1.004; UROBILINOGEN,URINE NEGATIVE mg/dL (<2.0)
--- NOTE | 2020-03-19 21:02 | EKG REPORT ---
SEVERITY:- ABNORMAL ECG - SINUS RHYTHM PROBABLE LEFT ATRIAL ABNORMALITY POOR R WAVE PROGRESSION , CONSIDER OLD ANTERIOR KS : Confirmed by: Joel Jimenez MD 19-Mar-2020 21:01:48
[2020-03-19] MEDS ORDERED: NITROGLYCERIN 2% OINTMENT 1 GM PACKET TP ONE (21:30)
[2020-03-19] MEDS ORDERED: ASPIRIN 81 MG TABLET, CHEWABLE PO ONE (21:30)
--- NOTE | 2020-03-19 21:49 | ER Document Report ---
Entered by GUILLERMO LIM SCRIBE 03/19/[id number] Acting as scribe for:GARRICK SHAW, DO ED General - General Chief Complaint: High Blood Pressure Stated Complaint: BLOOD PRESUURE PROBLEM Time Seen by Provider: 03/19/20 18:40 Primary Care Provider: JUNITO WATSON PA-C [Primary Care Provider] - Follow up as needed Mode of Arrival: Wheelchair Information source: Patient Notes: This 60-year-old female patient presents to the emergency department today with complaints of chest pain for the last few days with an associated headache. Patient reports that the pain radiates across her chest and from her left shoulder down to her left hand. Patient also mentions that her blood pressure has been elevated the last few days with the highest pressure reading being 175/115. She reports having an echo in 1994 but does not think she has had a ca rdiac cath. TRAVEL OUTSIDE OF THE [place] IN LAST 30 DAYS: No - Related Data Allergies/Adverse Reactions: No Known Allergies Allergy (Verified 03/19/20 19:18) Home Medications: Lisinopril. HCTZ. Verapimil. Metformin Past Medical History - General Information source: Patient - Social History Smoking Status: Never Smoker Cigarette use (# per day): No Chew tobacco use (# tins/day): No Frequency of alcohol use: Occasional Drug Abuse: None Lives with: Family Family History: Reviewed & Not Pertinent, CAD, CVA, Malignancy - Past Medical History Cardiac Medical History: Reports: Hx Hypercholesterolemia - No medications., Hx Hypertension Endocrine Medical History: Reports: Hx Diabetes Mellitus Type 2 - No medications, Hx Hypothyroidism - No medications Past Surgical History: Reports: Hx Breast Surgery - Right lumpectomy, Hx Section, Hx Hysterectomy - Immunizations Hx Diphtheria, Pertussis, Tetanus Vaccination: Yes Review of Systems - Review of Systems Constitutional: No symptoms reported EENT: No symptoms reported Cardiovascular: See HPI, Chest pain, Other Respiratory: No symptoms reported Gastrointestinal: No symptoms reported Genitourinary: No symptoms reported Female Genitourinary: No symptoms reported Musculoskeletal: No symptoms reported Skin: No symptoms reported Hematologic/Lymphatic: No symptoms reported Neurological/Psychological: See HPI, Headaches -: Yes All other systems reviewed and negative Physical Exam - Vital signs Vitals: Temp Pulse Resp BP Pulse Ox 98.1 F 75 20 224/115 H 99 03/18/20 18:10 03/18/20 18:10 03/18/20 18:10 03/18/20 18:10 03/18/20 18:10 - Notes Notes: Physical Exam: General: Alert, appears well. HEENT: Normocephalic. Atraumatic. PERRL. Extraocular movements intact. Oropharynx clear. Neck: Supple. Non-tender. Respiratory: No respiratory distress. Clear and equal breath sounds bilaterally. Cardiovascular: Regular rate and rhythm. Abdominal: Obese. Non-tender. No distension. Normal Bowel Sounds. Back: No gross abnormalities. Extremities: Moves all four extremities. Upper extremities: Normal inspection. Normal ROM. Lower extremities: Normal inspection. No edema. Normal ROM. Neurological: Normal cognition. AAOx4. Normal speech. Psychological: Normal affect. Normal Mood. Skin: Warm. Dry. Normal color. Course - Re-evaluation Re-evalutation: 03/19/20 21:47 MDM 60 year old female arrives with elevated blood pressure 175/115 at home, chest pain over last day and blurred vision. She has had no functional test in at least 20 or so years and has a heart score of 4. I have discussed with the hospitalist team and Dr. Haro has graciously agreed to see and evaluate for admission. - Vital Signs Vital signs: Temp Pulse Resp BP Pulse Ox 98.1 F 75 18 155/91 H 99 03/18/20 18:10 03/18/20 18:10 03/19/20 19:46 03/19/20 19:46 03/19/20 19:46 - Laboratory Results Result Diagrams: 03/19/20 19:03 03/19/20 19:03 Laboratory Results Interpreted: 03/19/20 03/19/20 19:03 19:03 RDW 14.1 H Lymph % (Auto) 49.3 H Seg Neutrophils % 39.8 L Carbon Dioxide 31 H AST 42 H ALT 37 H Critical Laboratory Results Reviewed: No Critical Results - Radiology Results Critical Radiology Results Reviewed: No Critical Results Discharge - Discharge Clinical Impression: Accelerated hypertension Chest pain Qualifiers: Chest pain type: unspecified Qualified Code(s): R07.9 - Chest pain, unspecified Condition: Stable Disposition: ADMITTED OBSERVATION Admitting Provider: Haroon (Hospitalist) Unit Admitted: Telemetry Referrals: JUNITO WATSON PA-C [Primary Care Provider] - Follow up as needed I personally performed the services described in the documentation, reviewed and edited the documentation which was dictated to the scribe in my presence, and it accurately records my words and actions.
[2020-03-20] MEDS ORDERED: DEXTROSE 50%-WATER 25 GM/50 ML DISP.SYRIN IV PRN ×2 (00:21)
[2020-03-20] MEDS ORDERED: ONDANSETRON HCL INJ/PF 4 MG/2 ML SDV IV PRN (00:21)
[2020-03-20] MEDS ORDERED: TEMAZEPAM 7.5 MG CAPSULE PO PRN (00:21)
[2020-03-20] MEDS ORDERED: DEXTROSE 40% GEL 15 GM TUBE PO PRN ×2 (00:21)
[2020-03-20] MEDS ORDERED: IPRATROPIUM/ALBUTEROL 0.5-2.5 MG/3 ML AMPUL NEB PRN (00:21)
[2020-03-20] MEDS ORDERED: PROMETHAZINE HCL INJ 25 MG/1 ML VIAL IV PRN (00:21)
[2020-03-20] MEDS ORDERED: ACETAMINOPHEN 325 MG TABLET PO PRN (00:21)
[2020-03-20] MEDS ORDERED: GLUCAGON,HUMAN RECOMB 1 MG INJ SUBCUT PRN (00:21)
[2020-03-20] MEDS ORDERED: OXYCODONE-ACETAMINOPHEN 5-325 MG TABLET PO PRN (00:21)
[2020-03-20] MEDS ORDERED: METOPROLOL TARTRATE PF/INJ 5 MG/5 ML SDV IV PRN (00:26)
[2020-03-20] MEDS ORDERED: HYDRALAZINE HCL INJ/PF 20 MG/1 ML SDV IV PRN (00:29)
[2020-03-20] MEDS ORDERED: NITROGLYCERIN 0.4 MG/TAB 25 TAB/BOTTLE SL PRN (00:36)
--- NOTE | 2020-03-20 03:18 | PDOC H&P ---
History of Present Illness Admission Date/PCP: 03/19/20 22:00 JUNITO WATSON PA-C History of Present Illness: SUSANNE VENEGAS is a 60 year old female past medical history of back pain, morbi d obesity, hypertension and diabetes presenting to ED complaining of chest pain. Patient is stating that for the last few days she has been having on and off pressure-like left-sided chest pain radiating to left arm, associated with blurry vision, headache and nausea, she has not identified any alleviating or exacerbating factor for her chest pain, denies having any previous cardiac history or any previous chest pain of this nature. She denies any palpitation, lightheadedness, syncope or presyncope. She has history of hypertension on multiple antihypertensive meds stating that she is very compliant with her medication and checks her pressure at home regularly, she is stating that for the last few days her blood pressure reading has been on the high side with no apparent reason. Patient denies any history of CAD however stated that she has history of CVA on the mother side and she is also former smoker. She denies any shortness of breath, fever, chills, nausea, vomiting, weight c hanges, abdominal pain, diarrhea, constipation, or any urinary symptoms. On admission she was noted to have a blood pressure of 220/115 EKG was sinus rhythm with poor R wave progression, CT of head was negative for any acute abnormalities, checks x-ray was negative, and troponins x2 was also negative. Given typical symptoms and risk factors hospital was consulted for admission. Past Medical History Cardiac Medical History: Reports: Hyperlipidema - No medications., Hypertension Denies: Congestive Heart Failure, Myocardial Infarction Pulmonary Medical History: Reports: Bronchitis Denies: Asthma, Chronic Obstructive Pulmonary Disease (COPD), Pneumonia, Tuberculosis Neurological Medical History: Denies: Seizures Endocrine Medical History: Reports: Diabetes Mellitus Type 2 - No medications, Hypothyroidism - No medications Renal/ Medical History: Denies: End Stage Renal Disease GI Medical History: Denies: Cirrhosis, Gastroesophageal Reflux Disease Musculoskeltal Medical History: Reports: Arthritis Psychiatric Medical History: Denies: Bipolar Disorder, Depression Hematology: Reports: Anemia Denies: Bleeding Tendencies Past Surgical History Past Surgical History: Reports: Section, Hysterectomy Social History Lives with: Family Smoking Status: Former Smoker Electronic Cigarette use?: No Drugs: None Family History Family History: Reviewed & Not Pertinent, CAD, CVA, Malignancy Parental Family History Reviewed: Yes Children Family History Reviewed: Yes Sibling(s) Family History Reviewed.: Yes Medication/Allergy Home Medications: Cyclobenzaprine HCl [Flexeril 5 mg Tablet] 5 mg PO TID PRN #15 tablet 09/04/13 Olmesartan/Amlodipin/Hcthiazid [Tribenzor 20-5-12.5 mg Tablet] 1 tab PO DAILY 09/04/13 Oxycodone HCl/Acetaminophen [Percocet 5-325 mg Tablet] 1 - 2 tab PO ASDIR PRN #15 tablet 09/04/13 Methocarbamol [Robaxin 500 mg Tablet] 500 mg PO Q8HP PRN #10 tablet 01/15/16 Tramadol HCl [Ultram] 50 mg PO Q6HP PRN #10 tablet 01/15/16 Amox Tr/Potassium Clavulanate [Augmentin 875-125 Tablet] 1 tab PO BID 10 Days tablet 02/15/16 Methocarbamol [Robaxin 750 mg Tablet] 750 mg PO ASDIR PRN #40 tablet 12/25/16 Cyclobenzaprine HCl [Flexeril 10 Mg Tablet] 10 mg PO TID #15 tablet 10/13/17 Oxycodone HCl/Acetaminophen [Percocet 5-325 mg Tablet] 1 tab PO ASDIR PRN #15 tablet 10/13/17 Allergies/Adverse Reactions: No Known Allergies Allergy (Verified 03/19/20 19:18) Review of Systems Review of Systems: as per hpi Physical Exam Vital Signs: Temp Pulse Resp BP Pulse Ox 97.7 F 58 L 18 138/88 H 98 03/20/20 00:21 03/20/20 00:28 03/20/20 00:21 03/20/20 00:21 03/20/20 00:21 Intake & Output 03/18/20 03/19/20 03/20/20 06:59 06:59 06:59 Weight 113.5 kg General appearance: PRESENT: no acute distress, morbidly obese, well-developed, well-nourished Head exam: PRESENT: atraumatic, normocephalic Neck exam: ABSENT: carotid bruit, JVD, lymphadenopathy, thyromegaly Respiratory exam: PRESENT: clear to auscultation kiki. ABSENT: rales, rhonchi, wheezes Cardiovascular exam: PRESENT: RRR. ABSENT: diastolic murmur, rubs, systolic murmur Pulses: PRESENT: normal dorsalis pedis pul GI/Abdominal exam: PRESENT: normal bowel sounds, soft. ABSENT: distended, guarding, mass, organolmegaly, rebound, tenderness Neurological exam: PRESENT: alert, awake, oriented to person, oriented to place, oriented to time, oriented to situation, CN II-XII grossly intact. ABSENT: motor sensory deficit Skin exam: PRESENT: dry, intact, warm. ABSENT: cyanosis, rash Results Laboratory Results: 03/19/20 19:03 03/19/20 19:03 03/19/20 03/19/20 03/19/20 19:00 19:03 19:03 WBC 6.2 RBC 4.62 Hgb 13.8 Hct 41.5 MCV 90 MCH 30.0 MCHC 33.3 RDW 14.1 H Plt Count 256 Seg Neutrophils % 39.8 L Sodium 139.5 Potassium 4.2 Chloride 99 Carbon Dioxide 31 H Anion Gap 10 BUN 16 Creatinine 0.81 Est GFR ( Amer) > 60 Glucose 92 Calcium 9.5 Magnesium 1.9 Total Bilirubin 0.6 AST 42 H Alkaline Phosphatase 73 Total Protein 7.8 Albumin 4.1 Urine Color STRAW Urine Appearance CLEAR Urine pH 7.0 Ur Specific [place] 1.004 Urine Protein NEGATIVE Urine Glucose (UA) NEGATIVE Urine Ketones NEGATIVE Urine Blood NEGATIVE Urine Nitrite NEGATIVE Ur Leukocyte Esterase NEGATIVE Urine WBC (Auto) 2 Urine RBC (Auto) 0 03/19/20 03/19/20 19:03 22:25 Troponin I < 0.012 < 0.012 Impressions: Chest X-Ray 03/19/20 18:46 IMPRESSION: NO ACUTE RADIOGRAPHIC FINDING IN THE CHEST. Head CT 03/19/20 18:47 IMPRESSION: NORMAL BRAIN CT WITHOUT CONTRAST. EVIDENCE OF ACUTE STROKE: NO. Assessment and Plan - Diagnosis (1) Hypertensive urgency Is this a current diagnosis for this admission?: Yes Plan: History of resistant hypertension on multiple medication. Patient reports medication adherence. However patient does not have a PCP and gets her medication from an urgent care. Home medications are lisinopril, hydrochlorothiazide, clonidine patch weekly, verapamil. Patient extensively counseled on importance of medication adherence and having regular PCP. Continue beta-blockers, BRI, calcium channel blockers. Monitor vitals, adjust meds as needed. Outpatient PCP follow-up. (2) Chest pain Qualifiers: Chest pain type: unspecified Qualified Code(s): R07.9 - Chest pain, unspecified Is this a current diagnosis for this admission?: Yes Plan: Likely due to hypertensive urgency but given presentation and risk factors patient warrants further studies for risk stratification. Admit to telemetry, trend troponins, statin, antiplatelets, beta-blockers, nuclear stress test. As needed sublingual nitroglycerin, IV morphine. Follow-up nuclear stress test. Consult cardiology if indicated. Outpatient PCP and cardiology follow-up. (3) Morbid obesity Is this a current diagnosis for this admission?: Yes Plan: BMI 40.4. Diet and lifestyle modification recommended. Will check TSH. (4) Diabetes Qualifiers: Diabetes mellitus type: type 2 Is this a current diagnosis for this admission?: Yes Plan: Controlled. Hemoglobin A1c 5.5%. On low-dose Metformin. Diabetic diet. Resume home meds. Sliding scale insulin. Diabetic education. Resume home meds upon discharge. - Time Time Spent with patient: 35 or more minutes Anticipated Discharge Disposition: Home, Self Care Anticipated Discharge Timeframe: within 36 hours
[2020-03-20] MEDS ORDERED: LISINOPRIL 10 MG TABLET PO SCH (10:00)
[2020-03-20] MEDS ORDERED: FAMOTIDINE 20 MG TABLET PO SCH (10:00)
[2020-03-20] MEDS ORDERED: DOCUSATE SODIUM 100 MG CAPSULE PO SCH (10:00)
[2020-03-20] MEDS ORDERED: ENOXAPARIN SODIUM INJ 40 MG/0.4 ML DISP.SYRIN SUBCUT SCH (10:00)
[2020-03-20] MEDS ORDERED: CARVEDILOL 12.5 MG TABLET PO SCH (10:00)
[2020-03-20] MEDS ORDERED: ISOSORBIDE MONONITRATE 60 MG TAB.ER.24H PO SCH (11:00)
--- NOTE | 2020-03-20 12:00 | DRAGON STRESS TEST REPORT ---
Name: Nicol Baxter : Jan Date: MAR 17 The patient underwent a stress/rest, single isotope SPECT Imaging with pharmacological stress and gated SPECT imaging on for evaluation of. The patient underwent infusion of regadnoson 0.4mg IV using the standard protocol. The heart rate was 58 beats per minute at baseline and increased to 101 beats during the infusion of regadenoson. The resting blood pressure was 136/95 mm/Hg and increased/decreased to 160/91 mm/Hg, which is a normal response. The patient complained of headache during the procedure. The resting electrocardiogram demonstrated NSR. Stress electrocardiogram is non- diagnostic in the setting of pharmacological stress. Myocardial perfusion imaging was performed at rest following the injection of 15.43 mCi of sestamibi. At peak pharmacolgic effect, the patient was injected with 46.9 mCi of sestamibi. Gating post-stress tomographic imaging was performed 60 minutes after stress. Findings The overall quality of the study is excellent. Raw images demonstrate no significant artifacts. Left ventricular cavity is noted to be normal on the rest and stress studies. Resting SPECT images demonstrate homogeneous tracer distribution throughout the myocardium. The stress images reveal homogeneous tracer distribution throughout the myocardium. Gated SPECT imaging reveals normal myocardial thickening and wall motion. The left ventricular ejection fraction was calculated to be 61%. Impression -Myocardial perfusion imaging is normal. -There is no scintigraphic evidence of ischemia or infarct. -Overall left ventricular systolic function was normal without wall motion abnormalities. -There are no prior studies for comparison. MTDD
--- NOTE | 2020-03-20 12:06 | PDOC CONSULTATION ---
Consultation Consult Date: 03/20/20 Attending physician:: JEANETTE OWENS Provider Consulted: ART ZIMMERMAN Consult reason:: CP History of Present Illness Admission Date/PCP: 03/19/20 22:00 JUNITO WATSON PA-C History of Present Illness: SUSANNE VENEGAS is a 60 year old female with history of type 2 diabetes, hypertension, morbid obesity, back pain who is consulted to our service for further evaluation of chest pain. The patient presented to our emergency room yesterday with a 2-day history of intermittent chest pain that she describes as a pressure, localized to the substernal area, with radiation to the back and to the left arm, lasting anywhere from 1 to 1.5 hours at a time, with spontaneous resolution, occasionally associated with diaphoresis but no shortness of breath, palpitations, syncope or presyncope. It has been recurrent at rest as the patient is very sedentary secondary to her back pain. She has not noticed any triggers or alleviating factors. She ruled out for [place] with 3 - cardiac troponins. Her EKG does not demonstrate ischemic changes and the pain has not recurred. Of note, upon evaluation in the ER her blood pressure was 220/115. Physical exam on 03/20/2020: GENERAL: Morbidly obese. Pleasant and conversational. Oriented x3 with normal mood. Not in acute distress. Well groomed and well developed. HEENT: Normocephalic, atraumatic. Pupils equal. Sclerae anicteric. Oropharynx moist. NECK: No JVD. No carotid bruits. LUNGS: Clear to auscultation bilaterally. Normal respiratory effort without the use of accessory muscles or intercostal retractions. CARDIOVASCULAR: Regular rate and rhythm, normal S1 and S2 without murmurs, rubs, or gallops. PMI not displaced. ABDOMEN: No masses or tenderness to palpation. No bruit. No splenomegaly or hepatomegaly. No abdominal aorta bruit noted. EXTREMITIES: No edema, no cyanosis, no clubbing. +2 pulses femoral and pedal pulses bilaterally. SKIN: No lesions or rashes. MUSCULOSKELETAL: No chest tenderness to palpation. NEUROLOGIC: Nonfocal. No gross sensory or motor deficits bilateral upper or lower extremities. Past Medical History Cardiac Medical History: Reports: Hyperlipidema - No medications., Hypertension Denies: Congestive Heart Failure, Myocardial Infarction Pulmonary Medical History: Reports: Bronchitis Denies: Asthma, Chronic Obstructive Pulmonary Disease (COPD), Pneumonia, Tube rculosis Neurological Medical History: Denies: Seizures Endocrine Medical History: Reports: Diabetes Mellitus Type 2 - No medications, Hypothyroidism - No medications Renal/ Medical History: Denies: End Stage Renal Disease GI Medical History: Denies: Cirrhosis, Gastroesophageal Reflux Disease Musculoskeltal Medical History: Reports: Arthritis Psychiatric Medical History: Denies: Bipolar Disorder, Depression Hematology: Reports: Anemia Denies: Bleeding Tendencies Past Surgical History Past Surgical History: Reports: Section, Hysterectomy Social History Lives with: Family Smoking Status: Former Smoker Electronic Cigarette use?: No Drugs: None Family History Family History: Reviewed & Not Pertinent, CAD, CVA, Malignancy Parental Family History Reviewed: Yes Children Family History Reviewed: Yes Sibling(s) Family History Reviewed.: Yes Medication/Allergy Home Medications: Clonidine [Catapres-Tts 1 (0.1 mg/24 Hr) Transderm Patch] 1 patch TD SA 03/20/20 Hydrochlorothiazide [Hydrodiuril 25 mg Tablet] 25 mg PO DAILY 03/20/20 Hydrocodone/Acetaminophen [[place] 5-325 mg Tablet] 1 tab PO TIDP PRN 03/20/20 Lisinopril [Zestril] 40 mg PO DAILY 03/20/20 Metformin HCl 500 mg PO DAILY 03/20/20 Verapamil HCl [Verapamil ER] 240 mg PO DAILY 03/20/20 Allergies/Adverse Reactions: No Known Allergies Allergy (Verified 03/19/20 19:18) Physical Exam Vital Signs: Temp Pulse Resp BP Pulse Ox 97.7 F 56 L 16 144/90 H 95 03/20/20 05:05 03/20/20 07:00 03/20/20 05:05 03/20/20 05:05 03/20/20 05:05 Intake & Output 03/19/20 03/20/20 03/21/20 06:59 06:59 06:59 Weight 113.5 kg 113.5 kg Results Laboratory Results: 03/19/20 19:03 03/19/20 19:03 03/19/20 03/19/20 03/19/20 19:00 19:03 19:03 WBC 6.2 RBC 4.62 Hgb 13.8 Hct 41.5 MCV 90 MCH 30.0 MCHC 33.3 RDW 14.1 H Plt Count 256 Seg Neutrophils % 39.8 L Sodium 139.5 Potassium 4.2 Chloride 99 Carbon Dioxide 31 H Anion Gap 10 BUN 16 Creatinine 0.81 Est GFR ( Amer) > 60 Glucose 92 Calcium 9.5 Magnesium 1.9 Total Bilirubin 0.6 AST 42 H Alkaline Phosphatase 73 Total Protein 7.8 Albumin 4.1 Urine Color STRAW Urine Appearance CLEAR Urine pH 7.0 Ur Specific [place] 1.004 Urine Protein NEGATIVE Urine Glucose (UA) NEGATIVE Urine Ketones NEGATIVE Urine Blood NEGATIVE Urine Nitrite NEGATIVE Ur Leukocyte Esterase NEGATIVE Urine WBC (Auto) 2 Urine RBC (Auto) 0 03/19/20 03/19/20 03/20/20 19:03 22:25 08:05 Troponin I < 0.012 < 0.012 < 0.012 Impressions: Chest X-Ray 03/19/20 18:46 IMPRESSION: NO ACUTE RADIOGRAPHIC FINDING IN THE CHEST. Head CT 03/19/20 18:47 IMPRESSION: NORMAL BRAIN CT WITHOUT CONTRAST. EVIDENCE OF ACUTE STROKE: NO. 03/19/20 19:03 03/19/20 19:03 MCV 90 fl (80-97) 03/19/20 19:03 MCH 30.0 pg (27.0-33.4) 03/19/20 19:03 MCHC 33.3 g/dL (32.0-36.0) 03/19/20 19:03 RDW 14.1 % (11.5-14.0) H 03/19/20 19:03 Seg Neutrophils % 39.8 % (42-78) L 03/19/20 19:03 Chloride 99 mmol/L (98-107) 03/19/20 19:03 Carbon Dioxide 31 mmol/L (22-30) H 03/19/20 19:03 Anion Gap 10 (5-19) 03/19/20 19:03 Est GFR ( Amer) > 60 (>60) 03/19/20 19:03 Glucose 92 mg/dL (75-110) 03/19/20 19:03 Calcium 9.5 mg/dL (8.4-10.2) 03/19/20 19:03 Magnesium 1.9 mg/dL (1.6-2.3) 03/19/20 19:03 Total Bilirubin 0.6 mg/dL (0.2-1.3) 03/19/20 19:03 AST 42 U/L (14-36) H 03/19/20 19:03 Alkaline Phosphatase 73 U/L (38-126) 03/19/20 19:03 Total Protein 7.8 g/dL (6.3-8.2) 03/19/20 19:03 Albumin 4.1 g/dL (3.5-5.0) 03/19/20 19:03 Urine Color STRAW 03/19/20 19:00 Urine Appearance CLEAR 03/19/20 19:00 Urine pH 7.0 (5.0-9.0) 03/19/20 19:00 Ur Specific [place] 1.004 03/19/20 19:00 Urine Protein NEGATIVE mg/dL (NEGATIVE) 03/19/20 19:00 Urine Glucose (UA) NEGATIVE mg/dL (NEGATIVE) 03/19/20 19:00 Urine Ketones NEGATIVE mg/dL (NEGATIVE) 03/19/20 19:00 Urine Blood NEGATIVE (NEGATIVE) 03/19/20 19:00 Urine Nitrite NEGATIVE (NEGATIVE) 03/19/20 19:00 Ur Leukocyte Esterase NEGATIVE (NEGATIVE) 03/19/20 19:00 Urine WBC (Auto) 2 /HPF 03/19/20 19:00 Urine RBC (Auto) 0 /HPF 03/19/20 19:00 03/19/20 03/19/20 03/20/20 19:03 22:25 08:05 Troponin I < 0.012 < 0.012 < 0.012 Current Medication List Generic Name Dose Route Start Last Admin Trade Name Freq PRN Reason Stop Dose Admin Acetaminophen 325 mg 03/20/20 00:21 Acetaminophen 325 Mg Tablet PO 04/19/20 00:20 Q4HP PRN FEVER >101 Albuterol/Ipratropium 3 ml 03/20/20 00:21 Ipratropium/Albuterol 0.5-2.5 Mg/3 Ml Ampul NEB 04/19/20 00:20 RTQ6HP PRN SHORTNESS OF BREATH Aspirin 81 mg 03/21/20 22:00 Aspirin 81 Mg Tablet, Chewable PO 04/20/20 21:59 QHS [facility] Atorvastatin Calcium 40 mg 03/20/20 22:00 Atorvastatin Calcium 40 Mg Tablet PO 04/19/20 21:59 QHS [facility] Carvedilol 25 mg 03/20/20 10:00 Carvedilol 12.5 Mg Tablet PO 04/19/20 09:59 Q12 BEN Dextrose 12.5 gm 03/20/20 00:21 Dextrose 50%-Water 25 Gm/50 Ml Disp.Syrin IV 04/19/20 00:20 PRN PRN FOR BG 50-69 IN ALERT PATIENT Protocol Dextrose 25 gm 03/20/20 00:21 Dextrose 50%-Water 25 Gm/50 Ml Disp.Syrin IV 04/19/20 00:20 PRN PRN See Label Comments Protocol Docusate Sodium 100 mg 03/20/20 10:00 Docusate Sodium 100 Mg Capsule PO 04/19/20 09:59 BID BEN Enoxaparin Sodium 40 mg 03/20/20 10:00 Enoxaparin Sodium Inj 40 Mg/0.4 Ml Disp.Syrin SUBCUT 04/19/20 09:59 DAILY BEN Famotidine 20 mg 03/20/20 10:00 Famotidine 20 Mg Tablet PO 04/19/20 09:59 Q12 BEN Glucagon 1 mg 03/20/20 00:21 Glucagon,Human Recomb 1 Mg Inj SUBCUT 04/19/20 00:20 PRN PRN Evaluate for BG < 70 Protocol Glucose 15 gm 03/20/20 00:21 Dextrose 40% Gel 15 Gm Tube PO 04/19/20 00:20 PRN PRN For BG 50-69 in Alert Patient Protocol Glucose 30 gm 03/20/20 00:21 Dextrose 40% Gel 15 Gm Tube PO 04/19/20 00:20 PRN PRN FOR BG < 50 IN ALERT PATIENT Protocol Hydralazine HCl 10 mg 03/20/20 00:29 Hydralazine Hcl Inj/Pf 20 Mg/1 Ml Sdv IV 04/19/20 00:28 Q3HP PRN Give For Sbp > [160] Lisinopril 40 mg 03/20/20 10:00 Lisinopril 10 Mg Tablet PO 04/19/20 09:59 DAILY [facility] Metoprolol Tartrate 2.5 mg 03/20/20 00:26 Metoprolol Tartrate Pf/Inj 5 Mg/5 Ml Sdv IV 04/19/20 00:25 Q6HP PRN Give For Hr > [150] Nitroglycerin 1 tab 03/20/20 00:36 Nitroglycerin 0.4 Mg/Tab 25 Tab/Bottle SL 04/19/20 00:35 Q5MP PRN FOR CHEST PAIN Ondansetron HCl 4 mg 03/20/20 00:21 Ondansetron Hcl Inj/Pf 4 Mg/2 Ml Sdv IV 04/19/20 00:20 Q4HP PRN FOR NAUSEA/VOMITING Oxycodone/Acetaminophen 1 tab 03/20/20 00:21 Oxycodone-Acetaminophen 5-325 Mg Tablet PO 03/27/20 00:20 Q4HP PRN FOR PAIN SCALE 4-5 Promethazine HCl 6.25 mg 03/20/20 00:21 Promethazine Hcl Inj 25 Mg/1 Ml Vial IV 04/19/20 00:20 Q4HP PRN FOR NAUSEA/VOMITING Temazepam 7.5 mg 03/20/20 00:21 Temazepam 7.5 Mg Capsule PO 03/27/20 00:20 HSP PRN SLEEP OR INSOMNIA Discontinued Medications Generic Name Dose Route Start Last Admin Trade Name Freq PRN Reason Stop Dose Admin Aspirin 162 mg 03/19/20 21:30 03/19/20 22:32 Aspirin 81 Mg Tablet, Chewable PO 03/19/20 21:31 162 mg NOW ONE Administration Nitroglycerin 0.5 gm 03/19/20 21:30 03/19/20 22:32 Nitroglycerin 2% Ointment 1 Gm Packet TP 03/19/20 21:31 0.5 gm NOW ONE Administration Status: Imported from PACS Assessment & Plan - Diagnosis (1) Chest pain Qualifiers: Chest pain type: unspecified Qualified Code(s): R07.9 - Chest pain, unspecified Is this a current diagnosis for this admission?: Yes Plan: 60-year-old female with cardiac risk factors of sedentary lifestyle, obesity, hypertension, diabetes, unknown lipids with intermittent chest pain in the setting of uncontrolled hypertension. She has remained pain-free since admission and hemodynamically stable. Her nuclear stress test today was normal. Recommendations: -Aggressive primary prevention measures. -Follow-up with cardiology if chest pain recurs. (2) Diabetes Qualifiers: Diabetes mellitus type: type 2 Is this a current diagnosis for this admission?: Yes Plan: Further management per hospitalist team. (3) Hypertensive urgency Is this a current diagnosis for this admission?: Yes Plan: Her blood pressure is improved since admission however she is above her goal of 130/80 or below. Recommendations: -Continue with current medical management. -Add chlorthalidone 12.5 mg daily. -Home blood pressure log. -Low-sodium diet. -I will arrange for follow-up in our office within 1 to 2 weeks of discharge.
[2020-03-20] MEDS ORDERED: CHLORTHALIDONE 25 MG TABLET PO SCH (13:00)
[2020-03-20] MEDS ORDERED: REGADENOSON INJ 0.4 MG/5 ML DISP.SYRIN IV ONE (14:37)
[2020-03-20 14:56] VITALS: BP 178/100
--- NOTE | 2020-03-20 20:02 | PDOC DISCHARGE SUMMARY ---
Impression - Admit/DC Date/PCP Admission Date/Primary Care Provider: 03/19/20 22:00 JUNITO WATSON PA-C Discharge Date: 03/20/20 - Discharge Diagnosis (1) Chest pain Is this a current diagnosis for this admission?: Yes (2) DM2 (diabetes mellitus, type 2) Is this a current diagnosis for this admission?: Yes (3) Hypertensive urgency Is this a current diagnosis for this admission?: Yes (4) Malignant hypertension Is this a current diagnosis for this admission?: Yes (5) Morbid obesity Is this a current diagnosis for this admission?: Yes - Assessment Summary: SUSANNE VENEGAS is a 60 year old female with history of type 2 diabetes, hypertension, morbid obesity (BMI 40), back pain who presented with chest pain. The patient presented to our emergency room yesterday with a 2-day history of intermittent chest pain that she describes as a pressure, localized to the substernal area, with radiation to the back and to the left arm, lasting anywhere from 1 to 1.5 hours at a time, with spontaneous resolution, occasionally associated with diaphoresis but no shortness of breath, palpitations, syncope or presyncope. She has not noticed any triggers or alleviating factors. Cardiology was consulted. She ruled out for ND with 3 negative cardiac troponins. Her EKG did not demonstrate ischemic changes and the pain has not recurred here in the hospital. She underwent a nuclear stress test today which was normal. She was found to have uncontrolled hypertension. Her home BP medications were adjusted. Her home metformin dose was increased. She will follow up with cardiology within 1-2 weeks. - Additional Information Resuscitation Status: Full Code Discharge Diet: Diabetic Discharge Activity: Activity As Tolerated Referrals: JUNITO WATSON PA-C [Primary Care Provider] - 03/20/20 1:05 pm (03/20/20 1304 CALLED AND LEFT A MESSAGE AND THEY WILL CONTACT PT WITH FOLLOW UP APT ) ART ZIMMERMAN MD [ACTIVE PROVISIONAL STAFF] - 03/20/20 1:20 pm (03/20/20 1319 PROVIDERS OFFICE WILL CONTACT PATIENT WITH FOLLOW UP APT.) Prescriptions: Metformin HCl [Glucophage 500 mg Tablet] 500 mg PO BIDACBS #60 tab Chlorthalidone [Hygroton 25 mg Tablet] 25 mg PO DAILY #30 tablet Atorvastatin Calcium [Lipitor 40 mg Tablet] 40 mg PO QHS #30 tablet Nitroglycerin [Nitrostat 0.4 mg (1/150 Gr) Tabs 25/Bottle] 1 tab SL Q5MP PRN #25 bottle PRN Reason: For Chest Pain Home Medications: Atorvastatin Calcium [Lipitor 40 mg Tablet] 40 mg PO QHS #30 tablet 03/20/20 Chlorthalidone [Hygroton 25 mg Tablet] 25 mg PO DAILY #30 tablet 03/20/20 Hydrocodone/Acetaminophen [[place] 5-325 mg Tablet] 1 tab PO TIDP PRN 03/20/20 Lisinopril [Zestril] 40 mg PO DAILY 03/20/20 Metformin HCl [Glucophage 500 mg Tablet] 500 mg PO BIDACBS #60 tab 03/20/20 Nitroglycerin [Nitrostat 0.4 mg (1/150 Gr) Tabs 25/Bottle] 1 tab SL Q5MP PRN #25 bottle 03/20/20 History of Present Illiness History of Present Illness: SUSANNE VENEGAS is a 60 year old female Physical Exam Vital Signs: Temp Pulse Resp BP Pulse Ox 97.8 F 65 16 178/100 H 95 03/20/20 14:50 03/20/20 14:57 03/20/20 14:57 03/20/20 14:50 03/20/20 14:57 Intake & Output 03/19/20 03/20/20 03/21/20 06:59 06:59 06:59 Intake Total 790 Balance 790 Weight 113.5 kg 113.5 kg Results Laboratory Results: WBC 6.2 10^3/uL (4.0-10.5) 03/19/20 19:03 RBC 4.62 10^6/uL (3.72-5.28) 03/19/20 19:03 Hgb 13.8 g/dL (12.0-15.5) 03/19/20 19:03 Hct 41.5 % (36.0-47.0) 03/19/20 19:03 MCV 90 fl (80-97) 03/19/20 19:03 MCH 30.0 pg (27.0-33.4) 03/19/20 19:03 MCHC 33.3 g/dL (32.0-36.0) 03/19/20 19:03 RDW 14.1 % (11.5-14.0) H 03/19/20 19:03 Plt Count 256 10^3/uL (150-450) 03/19/20 19:03 Lymph % (Auto) 49.3 % (13-45) H 03/19/20 19:03 [place] % (Auto) 7.2 % (3-13) 03/19/20 19:03 Eos % (Auto) 2.8 % (0-6) 03/19/20 19:03 Baso % (Auto) 0.9 % (0-2) 03/19/20 19:03 Absolute Neuts (auto) 2.5 10^3/uL (1.7-8.2) 03/19/20 19:03 Absolute Lymphs (auto) 3.1 10^3/uL (0.5-4.7) 03/19/20 19:03 Absolute Monos (auto) 0.4 10^3/uL (0.1-1.4) 03/19/20 19:03 Absolute Eos (auto) 0.2 10^3/uL (0.0-0.6) 03/19/20 19:03 Absolute Basos (auto) 0.1 10^3/uL (0.0-0.2) 03/19/20 19:03 Seg Neutrophils % 39.8 % (42-78) L 03/19/20 19:03 PT 11.6 SEC (11.4-15.4) 03/19/20 19:03 INR 0.83 03/19/20 19:03 APTT 27.8 SEC (23.5-35.8) 03/19/20 19:03 Sodium 139.5 mmol/L (137-145) 03/19/20 19:03 Potassium 4.2 mmol/L (3.6-5.0) 03/19/20 19:03 Chloride 99 mmol/L (98-107) 03/19/20 19:03 Carbon Dioxide 31 mmol/L (22-30) H 03/19/20 19:03 Anion Gap 10 (5-19) 03/19/20 19:03 BUN 16 mg/dL (7-20) 03/19/20 19:03 Creatinine 0.81 mg/dL (0.52-1.25) 03/19/20 19:03 Est GFR ( Amer) > 60 (>60) 03/19/20 19:03 Est GFR (MDRD) Non-Af > 60 (>60) 03/19/20 19:03 Glucose 92 mg/dL (75-110) 03/19/20 19:03 POC Glucose 92 mg/dL (70-110) 03/20/20 12:41 Calcium 9.5 mg/dL (8.4-10.2) 03/19/20 19:03 Magnesium 1.9 mg/dL (1.6-2.3) 03/19/20 19:03 Total Bilirubin 0.6 mg/dL (0.2-1.3) 03/19/20 19:03 Direct Bilirubin 0.3 mg/dL (0.0-0.4) 03/19/20 19:03 Neonat Total Bilirubin Not Reportable 03/19/20 19:03 Neonat Direct Bilirubin Not Reportable 03/19/20 19:03 Neonat Indirect Bili Not Reportable 03/19/20 19:03 AST 42 U/L (14-36) H 03/19/20 19:03 ALT 37 U/L (<35) H 03/19/20 19:03 Alkaline Phosphatase 73 U/L (38-126) 03/19/20 19:03 Troponin I < 0.012 ng/mL 03/20/20 08:05 Total Protein 7.8 g/dL (6.3-8.2) 03/19/20 19:03 Albumin 4.1 g/dL (3.5-5.0) 03/19/20 19:03 Urine Color STRAW 03/19/20 19:00 Urine Appearance CLEAR 03/19/20 19:00 Urine pH 7.0 (5.0-9.0) 03/19/20 19:00 Ur Specific [place] 1.004 03/19/20 19:00 Urine Protein NEGATIVE mg/dL (NEGATIVE) 03/19/20 19:00 Urine Glucose (UA) NEGATIVE mg/dL (NEGATIVE) 03/19/20 19:00 Urine Ketones NEGATIVE mg/dL (NEGATIVE) 03/19/20 19:00 Urine Blood NEGATIVE (NEGATIVE) 03/19/20 19:00 Urine Nitrite NEGATIVE (NEGATIVE) 03/19/20 19:00 Urine Bilirubin NEGATIVE (NEGATIVE) 03/19/20 19:00 Urine Urobilinogen NEGATIVE mg/dL (<2.0) 03/19/20 19:00 Ur Leukocyte Esterase NEGATIVE (NEGATIVE) 03/19/20 19:00 Urine WBC (Auto) 2 /HPF 03/19/20 19:00 Urine RBC (Auto) 0 /HPF 03/19/20 19:00 Urine Bacteria (Auto) TRACE /HPF 03/19/20 19:00 Squamous Epi Cells Auto 2 /HPF 03/19/20 19:00 Urine Mucus (Auto) RARE /LPF 03/19/20 19:00 Urine Ascorbic Acid NEGATIVE (NEGATIVE) 03/19/20 19:00 03/19/20 03/19/20 03/20/20 19:03 22:25 08:05 Troponin I < 0.012 < 0.012 < 0.012 Impressions: Chest X-Ray 03/19/20 18:46 IMPRESSION: NO ACUTE RADIOGRAPHIC FINDING IN THE CHEST. Head CT 03/19/20 18:47 IMPRESSION: NORMAL BRAIN CT WITHOUT CONTRAST. EVIDENCE OF ACUTE STROKE: NO. Stroke Is this a Stroke Patient?: No Acute Heart Failure Is this a Heart Failure Patient?: No
[2020-03-20] MEDS ORDERED: ATORVASTATIN CALCIUM 40 MG TABLET PO SCH (22:00)
[2020-03-21] MEDS ORDERED: ASPIRIN 81 MG TABLET, CHEWABLE PO SCH (22:00)
== END 2020-03-20 15:30 | disposition home or self-care (01) ==
LOC: ER 18:03 → EH 22:00 → 5 23:42
PROVIDERS: ADMIT Internal Medicine; ATTEND Hospitalist
DX: R07.9 Chest pain, unspecified (principal); E11.9 Type 2 diabetes mellitus without complications; I16.0 Hypertensive urgency; E66.01 Morbid (severe) obesity due to excess calories; I10 Essential (primary) hypertension; M79.602 Pain in left arm; M54.9 Dorsalgia, unspecified; R61 Generalized hyperhidrosis; E78.5 Hyperlipidemia, unspecified; E03.9 Hypothyroidism, unspecified; Z87.891 Personal history of nicotine dependence; Z79.899 Other long term (current) drug therapy; Z79.84 Long term (current) use of oral hypoglycemic drugs
CPT/HCPCS: 93005; 99285; 36415 ×2; 82962; 83735; 85025; 85610; 85730; 80053; 81001; 84484 ×2; 93017; 71045; 78452; 70450; 93010; G0378; A9500; J2785; Q9969